=== PATIENT | female | born 1935 | race Caucasian/White ===

== ENCOUNTER 2024-08-20 07:54 | Observation (INO) ==
[2024-08-20 08:46] LABS: ABS Basophils 0.1 10^3/uL (0.0-0.1); ABS Eosinophils 0.2 10^3/uL (0.0-0.5); ABS Lymphocytes 1.6 10^3/uL (1.0-4.8); ABS Monocytes 0.3 10^3/uL (0.0-0.9); ABS Neutrophils 4.3 10^3/uL (1.5-7.6); Eosinophil % 3.1 %; Hematocrit 46.1 % (35-45); Hemoglobin 15.5 g/dL (11.5-14.3); Lymphocyte % 25.1 %; Mean Corpuscular Hgb Conc 33.7 g/dL (31-36); Mean Corpuscular Volume 95.2 fL (80-97); Mean Platelet Volume 8.5 fL (7.5-11.2); Nucleated Red Blood Cells % 0.1 %/100WBC (0.0-0.8); Platelet Count 253 10^3/uL (150-450); Red Blood Count 4.84 10^6/uL (3.63-4.92); Red Cell Distribution Width 13.1 % (12-17); White Blood Count 6.5 10^3/uL (3.8-11.8)
[2024-08-20] MEDS: Iodixanol 320 (CONTRAST) 100 ML SDV IV ONE (08:51)
[2024-08-20 08:58] LABS: Activated Partial Thrombo Time 30.1 seconds (26.0-38.0); INR 0.94 (0.85-1.14)
[2024-08-20 09:20] LABS: Albumin 4.4 g/dL (3.2-5.2); Albumin/Globulin Ratio 1.5 (1-3); Calcium 9.7 mg/dL (8.6-10.3); Creatinine, Serum 0.72 mg/dL (0.51-0.95); Direct Bilirubin 0.1 mg/dL (0.03-0.18); Globulin 2.9 g/dL (2-4); HDL Cholesterol 61.1 mg/dL; Indirect Bilirubin 0.5 mg/dL (0.3-1.0); Total Bilirubin 0.6 mg/dL (0.2-1.0); Total Protein 7.3 g/dL (6.4-8.9); eGFR CKD-EPI 80.4 (>60)
[2024-08-20 09:23] LABS: Urine Appearance Clear; Urine Bilirubin Negative (Negative); Urine Blood Negative (Negative); Urine Color Colorless; Urine Glucose Negative (Negative); Urine Ketones Negative (Negative); Urine Nitrite Negative (Negative); Urine Protein Negative (Negative); Urine Urobilinogen Negative (Negative)
[2024-08-20 09:37] LABS: Urine Bacteria Absent /HPF (Absent); Urine Red Blood Cell Absent /HPF (0-Trace); Urine Squamous Epithelial Cell Present /HPF (Absent); Urine White Blood Cell Trace(0-5/hpf) /HPF (0-Trace)
[2024-08-20] MEDS ORDERED: Lorazepam PYXIS KEY PRN (09:52)
[2024-08-20] MEDS ORDERED: LORazepam 2 mg VIAL 1 ml ONE (09:52)
[2024-08-20] MEDS: LORazepam 2 mg VIAL 1 ml IV PUSH ONE (10:06)
[2024-08-20 14:30] LABS: TSH Ultra Thyroid Stim Horm 1.48 mcIU/mL (0.34-5.60)
[2024-08-20 14:41] LABS: Folate 16.01 ng/mL (5.90-24.80)
[2024-08-20] MEDS: Enoxaparin 40 MG/0.4 ML SYR SUBCUT SCH (20:51)
[2024-08-21 14:06] VITALS: BP 122/85
== END 2024-08-21 15:55 | disposition home or self-care (01) ==
LOC: ED 07:54 → EDHOLD 07:54 → MED 15:23
PROVIDERS: ADMIT Hospitalist; ATTEND Hospitalist